=== PATIENT | female | born 1985 | race Caucasian/White ===

== ENCOUNTER 2016-10-20 04:36 | Inpatient (IN) ==
--- NOTE | 2016-10-19 16:13 | HISTORY AND PHYSICAL ---
ADMITTING PHYSICIAN: Yg Kincaid MD ADMITTING DIAGNOSES: 1. Term . 2. Previous section requesting repeat section. . SUMMARY: Maria Guadalupe Mittal is a 31-year-old, 4, para 3-0-0-3. She has had an uncomplicated other than the tobacco abuse. Her blood type is O positive. Rubella immune. Hepatitis B surface antigen, HIV, and group B strep is negative. Her 1st two deliveries were vaginal delivery. This was followed by a section for failure to progress in labor. She is requesting repeat . We discussed the routine risk and possible complications of delivery, including pain, bleeding , infection, bowel or bladder injury, or anesthesia complications. PAST MEDICAL HISTORY: Other than her obstetrical history, there are no chronic medical or surgical illnesses. CURRENT MEDICATIONS: vitamins. ALLERGIES: None. PHYSICAL EXAMINATION: GENERAL: She is a well-developed, well-nourished, gravid female. VITAL SIGNS: Stable and she is afebrile. CARDIOVASCULAR: Regular rate and rhythm without murmurs, rubs, or gallops. PULMONARY: Clear. BREASTS: No masses. ABDOMEN: Gravid. CERVIX: Closed. EXTREMITIES: No clubbing, edema or cyanosis. IMPRESSION: 1. Term . 2. Previous section, requesting repeat section. PLAN: We will proceed with repeat section MTDD
[2016-10-20] MEDS ORDERED: REGLAN PO ONE (04:38)
[2016-10-20] MEDS ORDERED: KEFZOL 1 GM/D5W 50 ML IV PRN (04:38)
[2016-10-20] MEDS ORDERED: LR 500 ML IV ONE (04:38)
[2016-10-20] MEDS ORDERED: PEPCID PO ONE (04:38)
[2016-10-20] MEDS ORDERED: LR 1,000 ML IV SCH (04:45)
[2016-10-20 05:30] LABS: MANUAL DIFF NEEDED? NO
[2016-10-20 05:30] LABS: URINE SOURCE VOIDED
[2016-10-20 05:35] LABS: BASO% 0.1 % (0.0-0.8); EOS# 0.13 X1000 (0.0-0.7); EOS% 0.9 % (0.0-10.0); HEMATOCRIT 36.8 % (37.0-47.0); HEMOGLOBIN 12.6 g/dL (12.0-16.0); IMM GRAN% 0.7 % (0.0-0.5); LYMPH# 2.76 X1000 (1.2-3.4); LYMPH% 18.6 % (20.5-51.1); MCH 32.3 PG (27-31); MCHC 34.2 g/dL (33-37); MCV 94.4 FL (81-99); MONO# 1.29 X1000 (0.11-0.59); MONO% 8.7 % (1.7-9.3); MPV 11.3 FL (7.4-10.4); PLT 230 X1000 (130-400)
[2016-10-20 05:42] LABS: BILIRUBIN URINE NEGATIVE (NEGATIVE); COLOR YELLOW; GLUCOSE URINE NEGATIVE (NEGATIVE)
[2016-10-20 05:46] LABS: BLOOD URINE NEGATIVE (NEGATIVE); CLARITY CLEAR (CLEAR); LEUKOCYTES URINE NEGATIVE (NEGATIVE); NITRITE URINE NEGATIVE (NEGATIVE); PROTEIN URINE NEGATIVE (NEGATIVE); SP GRAVITY URINE 1.015; UROBILINOGEN URINE 1+(1 mg/dL)
[2016-10-20] MEDS ORDERED: PEPCID IV ONE (05:52)
[2016-10-20] MEDS ORDERED: BICITRA PO ONE (05:52)
[2016-10-20] MEDS ORDERED: SODIUM CHLORIDE 0.9% INJ ONE (05:52)
[2016-10-20] MEDS ORDERED: REGLAN IV ONE (05:52)
[2016-10-20] MEDS ORDERED: PITOCIN ONE ×2 (06:22→06:23)
[2016-10-20] MEDS ORDERED: TORADOL ONE (06:22)
[2016-10-20] MEDS ORDERED: METHERGINE ONE (06:23)
[2016-10-20] MEDS ORDERED: HEMABATE ONE (06:23)
[2016-10-20] MEDS ORDERED: DURAMORPH ONE (06:23)
[2016-10-20] MEDS ORDERED: ZOFRAN ONE (06:23)
[2016-10-20] MEDS ORDERED: REGLAN ONE (06:26)
[2016-10-20] MEDS ORDERED: PEPCID ONE (06:26)
[2016-10-20] MEDS ORDERED: BICITRA ONE (06:26)
[2016-10-20] MEDS ORDERED: DEMEROL IM ONE (06:36)
[2016-10-20] MEDS ORDERED: DEMEROL PO PRN ×2 (07:37)
[2016-10-20] MEDS ORDERED: PITOCIN 20 UNITS/LR 1,000 ML IV ONE (07:37)
[2016-10-20] MEDS ORDERED: MYLICON PO PRN (07:37)
[2016-10-20] MEDS ORDERED: PERCOCET-5 PO PRN (07:37)
[2016-10-20] MEDS ORDERED: NORCO-5 PO PRN (07:37)
[2016-10-20] MEDS ORDERED: M-M-R II VACCINE SUBQ ONE (07:37)
[2016-10-20] MEDS ORDERED: HYDROXYZINE PO PRN (07:37)
[2016-10-20] MEDS ORDERED: DULCOLAX PR PRN (07:37)
[2016-10-20] MEDS ORDERED: PITOCIN IM PRN (07:37)
[2016-10-20] MEDS ORDERED: AMBIEN PO PRN (07:37)
[2016-10-20] MEDS ORDERED: CYTOTEC PO PRN (07:37)
[2016-10-20] MEDS ORDERED: PHENERGAN IM PRN (07:37)
[2016-10-20] MEDS ORDERED: DEMEROL IM PRN (07:37)
[2016-10-20] MEDS ORDERED: HYDROXYZINE IM PRN (07:37)
[2016-10-20] MEDS ORDERED: BOOSTRIX VACCINE IM ONE (07:37)
[2016-10-20] MEDS: TORADOL IV SCH ×3 (07:45→20:05)
[2016-10-20] MEDS ORDERED: NEO-SYNEPHRINE ONE (07:52)
--- NOTE | 2016-10-20 08:02 | OPERATIVE NOTE ---
PROCEDURE DATE: 10/20/2016 SURGEON: Yg Kincaid MD ANESTHESIA: Spinal by Dr. Alex. OPERATION PERFORMED: Repeat low transverse section PREOPERATIVE DIAGNOSES: 1. Term . 2. Previous section requesting repeat section. PRINCIPAL DIAGNOSIS: 1. Term . 2. Previous section requesting repeat section. PRINCIPLE PROCEDURE: Repeat section. FINDINGS: At 0710 hours, an 8 pound 1 ounce male infant was delivered in a vertex presentation. There was a nuchal cord x2. scores were 9 at 1 minute and 10 at 5 minutes. SUMMARY: The patient was taken back to the operating room where spinal anesthetic was placed. She was then placed in the supine position with a left lateral tilt. The abdomen was prepped and draped in the usual fashion. A Mcclelland catheter was in her urinary bladder. Once satisfactory conduction anesthesia was demonstrated, a repeat Pfannenstiel incision was made. This incision was taken down to the fascia, and the fascia was excised transversely. The underlying rectus muscles were bluntly and sharply dissected free. The rectus muscles were in the midline. The peritoneum was entered. The lower uterine segment was identified. A bladder flap was created. A low transverse incision was made across the myometrium. This incision was extended laterally using digital pressure. Membranes were ruptured revealing clear fluid. The 's head was delivered through this incision. A nuchal cord x2 was reduced. The shoulders and body delivered without complications. The cord was clamped and cut, and the infant was handed to the nurses for further care and evaluation. Cord blood was obtained. The placenta was manually removed. The uterus was delivered onto the abdominal wall and explored. All membrane fragments were removed. The myometrium was then reapproximated using a running number 1 chromic interlocking suture, followed by several figure-of- 8 chromic sutures for complete hemostasis across the suture line. The uterus was placed back into the pelvic cavity. The uterine incision was reexamined and found to be hemostatic. The pelvic cavity was then irrigated with copious amounts of sterile water. Again, complete hemostasis was noted. The first and second sponge, instrument, and needle counts were reported as correct. Thus, we closed the peritoneum with a running chromic suture. All final sponge, instrument, needle count report was correct. Thus, the fascia closed using running Vicryl sutures x2. Subcuticular tissue was reapproximated using a running 3-0 Vicryl suture. The skin edges were reapproximated using a 3-0 Monocryl suture. Anesthesia estimated her blood loss 400 mL. There were no complications. The patient went to the recovery room in stable condition.
[2016-10-20] MEDS ORDERED: DILAUDID ONE (09:33)
[2016-10-20] MEDS ORDERED: NARCAN INJ PRN (09:40)
[2016-10-20] MEDS ORDERED: ZOFRAN ODT PO PRN (09:40)
[2016-10-20] MEDS ORDERED: ZOFRAN IV PRN ×3 (09:40→09:41)
[2016-10-20] MEDS ORDERED: BENADRYL IV PRN (09:40)
[2016-10-20] MEDS: PITOCIN 10 UNITS/LR 1,000 ML IV SCH ×3 (12:30→18:29)
[2016-10-20] MEDS: PRECARE PO SCH (13:22)
[2016-10-20] MEDS ORDERED: SODIUM CHLORIDE 0.9% 10 ML ONE (13:27)
[2016-10-20] MEDS: MYLICON PO SCH ×4 (13:33→20:04)
[2016-10-20] MEDS: DILAUDID IV PRN ×3 (15:15→22:44)
[2016-10-20] MEDS: PERICOLACE PO SCH (20:04)
[2016-10-21] MEDS: PERCOCET-10 PO PRN ×4 (00:15→21:42)
[2016-10-21] MEDS: TORADOL IV SCH (01:42)
[2016-10-21 06:33] LABS: HEMATOCRIT 29.5 % (37.0-47.0); HEMOGLOBIN 9.5 g/dL (12.0-16.0); MCH 31.4 PG (27-31); MCHC 32.2 g/dL (33-37); MCV 97.4 FL (81-99); MPV 11.2 FL (7.4-10.4); RBC 3.03 XMIL (4.2-5.4)
[2016-10-21] MEDS ORDERED: PHENERGAN IM ONE (06:38)
[2016-10-21] MEDS ORDERED: DEMEROL IM ONE (07:04)
[2016-10-21] MEDS ORDERED: LR 1,000 ML IV SCH (07:37)
[2016-10-21] MEDS: MYLICON PO SCH ×4 (08:55→20:21)
[2016-10-21] MEDS: PRECARE PO SCH (08:55)
[2016-10-21] MEDS: MOTRIN PO PRN ×2 (11:47→20:20)
[2016-10-21] MEDS: NORCO-10 PO PRN ×2 (14:43→18:33)
[2016-10-21] MEDS: PERICOLACE PO SCH (20:21)
[2016-10-22] MEDS: PERCOCET-10 PO PRN ×3 (02:54→10:00)
[2016-10-22] MEDS: MOTRIN PO PRN (06:18)
[2016-10-22 07:35] VITALS: BP 113/63
[2016-10-22] MEDS: MYLICON PO SCH (08:30)
[2016-10-22] MEDS: PRECARE PO SCH (08:30)
--- NOTE | 2016-10-23 00:16 | DISCHARGE SUMMARY ---
ADMISSION DATE: 10/20/2016 DISCHARGE DATE: 10/22/2016 ADMITTING DIAGNOSIS: Term , previous for repeat. DISCHARGE DIAGNOSES: Term , previous for repeat. PROCEDURE: Repeat delivery. CONDITION: Stable. DIET: As tolerated. ACTIVITY: Routine postoperative and instructions. FOLLOWUP: She is to follow up in 2 weeks at the office. MEDICATIONS: Oxycodone 10 mg 1 by mouth every 4-6 hours as needed for pain, Motrin 800, vitamins with iron and stool softeners. Please refer to Ms. Mittal's records, H and P and operative note. She underwent a repeat delivery on and has recovered without complaints or issues. She is now postop day 2. PHYSICAL EXAM: Vital signs: Stable. She is afebrile. General: She is alert and cooperative, no distress. Neck: Is supple. Lungs: Clear. Heart: Regular sinus rhythm. Abdomen: Is slightly distended. Uterus is firm. Incision is dry and intact. Extremities: +3 lower extremity edema. LABS: Post delivery hemoglobin and hematocrit 9.5/29.5. Will discharge with above instructions.
== END 2016-10-22 12:00 | disposition home or self-care (01) | DRG 766 ==
LOC: P.LD 04:36 → P.WC 09:57
PROVIDERS: ADMIT Obstetrics & Gynecology; ATTEND Obstetrics & Gynecology
PROC: 10D00Z1 Extraction of Products of Conception, Low, Open Approach (ICD-10-PCS; principal; 2016-10-20 07:00)
DX: O34.211 Maternal care for low transverse scar from previous cesarean delivery (principal); F17.210 Nicotine dependence, cigarettes, uncomplicated; O99.333 Smoking (tobacco) complicating pregnancy, third trimester; O69.1XX0 Labor and delivery complicated by cord around neck, with compression, not applicable or unspecified; Z37.0 Single live birth; Z3A.39 39 weeks gestation of pregnancy
CPT/HCPCS: 36415; 59025; 81003; 85025; 85027; 86592; 86850; 86900; 86901; 94799; J0690; J1170; J1885; J2175; J2210; J2274; J2370; J2405; J2550; J2590; J2765; J7120